=== PATIENT | male | born 1970 | race Two or more races ===

== ENCOUNTER 2020-09-12 17:16 | Emergency (ER) | payer SELFPAY ==
[~2020-09-12] VITALS: Ht 167.6 cm; Wt 71.0 kg
[2020-09-12] MEDS ORDERED: MORPHINE SULFATE 10 MG/ML CPJ IM ONE ×2 (18:30→19:30)
[2020-09-12] MEDS ORDERED: LIDOCAINE HCL 1% 20ML VIAL (Pyxis) INJ INFIL ONE (19:00)
[2020-09-12] MEDS ORDERED: IBUP-2029 MT (20:47)
[2020-09-12 22:14] VITALS: BP 118/66
== END 2020-09-12 22:24 | disposition home or self-care (01) ==
LOC: ER 17:16
DX: S63.115A Dislocation of metacarpophalangeal joint of left thumb, initial encounter (principal); S93.402A Sprain of unspecified ligament of left ankle, initial encounter; X58.XXXA Exposure to other specified factors, initial encounter; Y93.89 Activity, other specified; Y92.9 Unspecified place or not applicable; Z87.442 Personal history of urinary calculi
CPT/HCPCS: 26700; 73130; 73610; 96372; 99152; 99285; J2270; J3490; Z7610